=== PATIENT | male | born 1955 | race American Indian/Alaskan Native ===

== ENCOUNTER 2024-05-22 09:39 | Emergency (ER) | payer MEDICARE, MEDICAID, SELFPAY ==
--- NOTE | 2024-05-22 09:58 | EKG_ITS ---
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
--- NOTE | 2024-05-22 09:58 | XR_ITS ---
Examination: PA lateral chest 2 views TECHNIQUE: Upright PA lateral chest 2 views Exam date and time: May 22, 2024 1029 hours INDICATIONS: Chest pain shortness of breath today. FINDINGS: Normal heart size No pneumonia or pulmonary edema Intact osseous structures IMPRESSION: No active disease
--- NOTE | 2024-05-22 09:58 | PD.EDRME ---
Rapid Medical Screening Exam RME Arrival date/time: 05/22/24 09:39 69-year-old male presents the emergency department complaints of chest pain/chest pressure Chief Complaint: Chest Pain Time Seen by Provider: 05/22/24 09:45
[2024-05-22 10:00] VITALS: BP 123/75; PULSE 71; RESP 18; TEMP 36; O2SAT 97; BMI 29.4
[2024-05-22 10:26] LABS: Basophils % (Auto) 1 % (0-2.5); Eosinophils # (Auto) 0.1 Thou/mm3 (0.0-0.5); Eosinophils % (Auto) 2 % (0-10); Hematocrit 46.8 % (41.0-53.0); Immature Granulocytes % (Auto) 1 % (0-0); Immature Granulocytes Auto 0.03 Thou/mm3 (0.00-0.00); Lymphocytes # (Auto) 1.6 Thou/mm3 (1.0-4.8); Lymphocytes % (Auto) 26 % (10-50); Mean Corpuscular HGB Conc 34.2 g/dl (31.0-37.0); Mean Corpuscular Hemoglobin 32.9 pg (25.0-35.0); Mean Corpuscular Volume 96 fL (80-100); Monocytes # (Auto) 0.5 Thou/mm3 (0.0-0.8); Monocytes % (Auto) 9 % (0-12); Neutrophils # (Auto) 3.8 Thou/mm3 (1.8-7.7); Neutrophils % (Auto) 62 % (37-80); Nucleated Red Blood Cell % 0 /100 WBC (0); Platelet Count 213 Thou/mm3 (140-440); RDW Standard Deviation 47.5 fL (35.1-43.9); Red Blood Count 4.86 Miln/mm3 (4.50-5.90); White Blood Count 6.2 Thou/mm3 (3.8-10.6)
[2024-05-22 10:42] LABS: Partial Thromboplastin Time 25.1 Seconds (22.0-36.0); Prothrombin Time 10.9 Seconds (9.0-12.2)
[2024-05-22 10:44] LABS: Alanine Aminotransferase 27 U/L (10-49); Albumin, Serum 4.8 gm/dL (3.4-4.8); Albumin/Globulin Ratio 1.7 (1.2-2.2); Alkaline Phosphatase 82 U/L (46-116); Anion Gap 5 (7-16); Aspartate Amino Transferase 26 U/L (0-34); BUN/Creatinine Ratio 8 Ratio (12-20); Bilirubin,Total 0.5 mg/dL (0.3-1.2); Blood Urea Nitrogen 10 mg/dL (9-23); Carbon Dioxide 28.2 mMol/L (20.0-31.0); Chloride 103 mMol/L (98-107); Creatinine (Component) 1.2 mg/dL (0.6-1.3); Estimated Creatinine Clearance 51.3 mL/min (>60); Globulin 2.9 gm/dL (2.3-3.5); Glucose 148 mg/dL (74-106); Lipase 33 U/L (12-53); Osmolality,Calculated 273 (275-295); Potassium 4.4 mMol/L (3.4-5.1); Sodium 136 mMol/L (136-145); Total Protein 7.7 gm/dL (5.7-8.2); Troponin I < 0.002 ng/mL (0.0-0.045); eGFR > 60 See Note
[2024-05-22 10:51] LABS: B-Type Natriuretic Peptide 34 pg/mL (0-100)
[2024-05-22 10:56] LABS: Amphetamine/Methamp Scrn,U Negative (Negative); Barbiturate Screen,Urine Negative (Negative); Benzodiazepines Screen,Urine Negative (Negative); Benzoylecgonine Screen, Ur Negative (Negative); Fentanyl Screen,Urine Negative (Negative); Opiate Screen,Urine Negative (Negative); THC Screen,Urine Negative (Negative)
--- NOTE | 2024-05-22 11:36 | PC.NURSE ---
PATIENT STATED HE IS GOING TO SEE HIS PCP. PATIENT SIGNSED AMA PAPERWORK AND LEFT ER.
== END 2024-05-22 11:37 | disposition left against medical advice (07) ==
LOC: SERX 11:16
PROVIDERS: Nurse Practitioner Primary Care; Emergency Provider Emergency Medicine
DX: R07.89 Other chest pain (principal); R94.31 Abnormal electrocardiogram [ECG] [EKG]
CPT/HCPCS: 36415; 71046; 80053; 80307; 83690; 83735; 83880; 84484; 85025; 85610; 85730; 93005; 99281

== ENCOUNTER → 2024-07-17 | Outpatient (CLI) | payer MEDICARE, MEDICAID, SELFPAY ==
--- NOTE | 2024-07-17 13:00 | XR_ITS ---
Examination: Retroperitoneal ultrasound, complete Technique: Multiple high resolution grayscale images of the retroperitoneum obtained, including kidneys and bladder. Exam date and time:June 16, 2025 1632 hours INDICATIONS: Diagnosis chronic kidney disease stage III a FINDINGS: Right kidney 9.3 x 5.9 x 4.4 cm in the cortex 1.7 cm Left kidney 10.2 x 4 x 6 x 4.7 cm renal cortex 1.8 cm Moderate bilateral renal parenchymal scar formation Bilateral perinephric stranding measuring 7-8 mm No hydronephrosis No bladder mass or bladder calculi Contracted urinary bladder Prostate volume 25 cc prostate calcifications IMPRESSION: Bilateral renal cortical thinning Moderate bilateral renal parenchymal scar formation No hydronephrosis
== END | disposition home or self-care (01) ==
PROVIDERS: PCP Internal Medicine Nephrology; Referring Provider Internal Medicine Nephrology; Visit Provider Internal Medicine Nephrology
DX: N28.89 Other specified disorders of kidney and ureter (principal)
CPT/HCPCS: 76770

== ENCOUNTER → 2024-09-03 | Outpatient (CLI) | payer MEDICARE, MEDICAID, SELFPAY ==
[2024-09-03 09:31] LABS: Basophils % (Auto) 1 % (0-2.5); Eosinophils # (Auto) 0.1 Thou/mm3 (0.0-0.5); Eosinophils % (Auto) 3 % (0-10); Hematocrit 46.1 % (41.0-53.0); Hemoglobin 15.6 g/dL (13.5-16.0); Immature Granulocytes % (Auto) 0 % (0-0); Immature Granulocytes Auto 0.02 Thou/mm3 (0.00-0.00); Lymphocytes # (Auto) 1.6 Thou/mm3 (1.0-4.8); Lymphocytes % (Auto) 29 % (10-50); Mean Corpuscular HGB Conc 33.8 g/dl (31.0-37.0); Mean Corpuscular Hemoglobin 32.2 pg (25.0-35.0); Mean Corpuscular Volume 95 fL (80-100); Monocytes # (Auto) 0.4 Thou/mm3 (0.0-0.8); Monocytes % (Auto) 8 % (0-12); Neutrophils # (Auto) 3.3 Thou/mm3 (1.8-7.7); Neutrophils % (Auto) 60 % (37-80); Nucleated Red Blood Cell % 0 /100 WBC (0); Platelet Count 201 Thou/mm3 (140-440); RDW Standard Deviation 48.6 fL (35.1-43.9); Red Blood Count 4.84 Miln/mm3 (4.50-5.90); White Blood Count 5.6 Thou/mm3 (3.8-10.6)
[2024-09-03 09:40] LABS: Anion Gap 8 (7-16); BUN/Creatinine Ratio 13 Ratio (12-20); Blood Urea Nitrogen 15 mg/dL (9-23); Calcium 10.1 mg/dL (8.3-10.6); Carbon Dioxide 31.4 mMol/L (20.0-31.0); Chloride 103 mMol/L (98-107); Creatinine (Component) 1.2 mg/dL (0.6-1.3); Glucose 108 mg/dL (74-106); Osmolality,Calculated 284 (275-295); Potassium 4.4 mMol/L (3.4-5.1); Sodium 142 mMol/L (136-145); eGFR > 60 See Note
[2024-09-03 09:41] LABS: Partial Thromboplastin Time 26.8 Seconds (22.0-36.0); Prothrombin Time 11.4 Seconds (9.0-12.2)
== END | disposition home or self-care (01) ==
LOC: COPL 08:09
PROVIDERS: PCP Internal Medicine; Referring Provider Internal Medicine; Visit Provider Internal Medicine
DX: I25.10 Atherosclerotic heart disease of native coronary artery without angina pectoris (principal); I48.91 Unspecified atrial fibrillation
CPT/HCPCS: 36415; 80048; 85025; 85610; 85730

== ENCOUNTER 2024-09-10 04:18 | Emergency (ER) | payer MEDICARE, MEDICAID, SELFPAY ==
[2024-09-10 04:19] VITALS: BMI 27.6
[2024-09-10 04:24] VITALS: BP 143/89; PULSE 93; RESP 18; TEMP 36.8; O2SAT 96
--- NOTE | 2024-09-10 04:43 | XR_ITS ---
Examination: PA lateral chest 2 views Technique: Upright PA lateral chest 2 views Exam date and time: September 10, 2024 0446 hrs. Indications: Onset chest pain today Findings: Normal heart size Lungs are clear. The osseous structures are intact Impression: No active disease
--- NOTE | 2024-09-10 04:44 | PD.EDRME ---
Rapid Medical Screening Exam E Arrival date/time: 09/10/24 04:18 69-year-old male past medical history of hypertension currently on lisinopril presents emergency department complaining of facial swelling that he noticed when he woke up this morning. Chief Complaint: Skin/Abscess/Foreign Body Vital signs: Vital Signs Temperature 98.2 F 09/10/24 04:24 Pulse Rate 93 09/10/24 04:24 Respiratory Rate 18 09/10/24 04:24 Blood Pressure 143/89 H 09/10/24 04:24 Pulse Oximetry (%) 96 09/10/24 04:24 Oxygen Delivery Method Room Air 09/10/24 04:24 Vital signs reviewed by provider: Yes
[2024-09-10] MEDS: lorataDINE 10 MG TABLET PO (05:06)
[2024-09-10] MEDS: DEXAMETHASONE SOD PHOS INJ 10 MG/ML VIAL PO (05:06)
[2024-09-10 05:17] LABS: Basophils % (Auto) 0 % (0-2.5); Eosinophils # (Auto) 0.2 Thou/mm3 (0.0-0.5); Eosinophils % (Auto) 2 % (0-10); Hematocrit 47.3 % (41.0-53.0); Hemoglobin 16.1 g/dL (13.5-16.0); Immature Granulocytes % (Auto) 0 % (0-0); Immature Granulocytes Auto 0.02 Thou/mm3 (0.00-0.00); Lymphocytes # (Auto) 1.7 Thou/mm3 (1.0-4.8); Lymphocytes % (Auto) 26 % (10-50); Mean Corpuscular Hemoglobin 32.5 pg (25.0-35.0); Mean Corpuscular Volume 96 fL (80-100); Monocytes # (Auto) 0.5 Thou/mm3 (0.0-0.8); Monocytes % (Auto) 8 % (0-12); Neutrophils # (Auto) 4.1 Thou/mm3 (1.8-7.7); Neutrophils % (Auto) 63 % (37-80); Nucleated Red Blood Cell % 0 /100 WBC (0); Platelet Count 222 Thou/mm3 (140-440); RDW Standard Deviation 47.5 fL (35.1-43.9); Red Blood Count 4.95 Miln/mm3 (4.50-5.90); White Blood Count 6.6 Thou/mm3 (3.8-10.6)
[2024-09-10] MEDS: FAMOTIDINE 20 MG TABLET 40 MG PO (05:28)
[2024-09-10 05:33] LABS: Partial Thromboplastin Time 27.3 Seconds (22.0-36.0); Prothrombin Time 11.4 Seconds (9.0-12.2)
[2024-09-10 05:35] LABS: B-Type Natriuretic Peptide < 20 pg/mL (0-100)
[2024-09-10 05:37] LABS: Alanine Aminotransferase 23 U/L (10-49); Albumin, Serum 4.8 gm/dL (3.4-4.8); Albumin/Globulin Ratio 1.7 (1.2-2.2); Alkaline Phosphatase 90 U/L (46-116); Anion Gap 8 (7-16); Aspartate Amino Transferase 19 U/L (0-34); BUN/Creatinine Ratio 12 Ratio (12-20); Blood Urea Nitrogen 14 mg/dL (9-23); Calcium 9.8 mg/dL (8.3-10.6); Calcium (Corrected) 9.8 mg/dL (8.5-10.1); Carbon Dioxide 28.6 mMol/L (20.0-31.0); Chloride 103 mMol/L (98-107); Creatinine (Component) 1.2 mg/dL (0.6-1.3); Estimated Creatinine Clearance 53.5 mL/min (>60); Globulin 2.9 gm/dL (2.3-3.5); Glucose 116 mg/dL (74-106); Magnesium 2.1 mg/dL (1.6-2.6); Osmolality,Calculated 280 (275-295); Potassium 4.1 mMol/L (3.4-5.1); Sodium 140 mMol/L (136-145); Total Protein 7.7 gm/dL (5.7-8.2); Troponin I < 0.020 ng/mL (0.0-0.045); eGFR > 60 See Note
--- NOTE | 2024-09-10 05:48 | PC.NURSE ---
Initial contact with pt. Dr. Thomas in room seeing pt.
[2024-09-10 05:59] VITALS: BP 148/87; PULSE 82; RESP 18; TEMP 36.6; O2SAT 97
--- NOTE | 2024-09-10 06:10 | PC.NURSE ---
Pt stated that he woke up at 02:00 to use the BR, he felt itching all over and notice facial swelling. Denies SOB, difficulty swallowing. No rashes or angio edema noted.
[2024-09-10 06:15] LABS: Collection Type, Urine Clean Catch
--- NOTE | 2024-09-10 06:15 | PD.EDSKIN ---
ED Skin Abcess FB-RME/HPI General Chief complaint: Skin/Abscess/Foreign Body Stated complaint: WOKE UP WITH FACIAL SWELLING Time Seen by Provider: 09/10/24 06:25 Arrival date/time: 09/10/24 04:18 RME / HPI RME / HPI narrative: 09/10/24 04:18 69-year-old male past medical history of hypertension currently on lisinopril presents emergency department complaining of facial swelling that he noticed when he woke up this morning. DR. RODRIGUEZ MAIN ED EVALUATION: 69 year old male with history of hypertension, on Lisinopril since 28 years old, presents to the ED for evaluation of facial swelling beginning last night. States he recently underwent peripheral artery procedure with bag press operator Dr. Wahl 1 week ago Tuesday. States he was discharged home on a new antibiotic, which he doesn't recall the name of, and has been taking Q6H. Patient states by that night he noticed full body itching and does not recall if there was a rash. States he continued the antibiotic and the itching persisted through the week. Last night noted additional lip swelling without any pain, itching, tongue swelling, or difficulty breathing. Related Data Home Medications ?Medication ?Instructions ?Recorded ?Confirmed lisinopril 20 mg tablet 10 mg PO DAILY 10/01/20 12/23/21 verapamil 240 mg tablet,extended 240 mg PO BID 11/28/20 12/23/21 release dicyclomine 10 mg capsule 1 cap PO QDAY 12/23/21 12/23/21 doxazosin 2 mg tablet 1 tab PO QDAY 12/23/21 12/23/21 rifampin 300 mg capsule 2 cap PO QDAY 12/23/21 12/23/21 Previous Rx's ?Medication ?Instructions ?Recorded metoclopramide HCl 10 mg tablet 10 mg PO BID #60 tabs 12/23/21 (Reglan) omeprazole 40 mg capsule,delayed 40 mg PO QDAY #30 caps 12/23/21 release diphenoxylate-atropine 2.5 1 tab PO QDAY PRN diarrhea #20 tabs 02/05/22 mg-0.025 mg tablet (Lomotil) Allergies Allergy/AdvReac Type Severity Reaction Status Date / Time No Known Allergies Allergy Verified 05/22/24 09:39 Review of Systems Review of Systems Narrative Review of Systems: Gen: No fever, no chills, no weight loss EYES: No discharge, no visual changes, no pain HEENT: +upper lip swelling. No ear pain, no congestion, no sore throat PULM: no shortness of breath, no cough, no congestion CV: No chest pain, no dyspnea on exertion, no palpitations, no chest tightness GI: No nausea, no vomiting, no diarrhea, no pain, no constipation : No frequency, no urgency,? no dysuria Musc/skel: No joint pain, no back pain Skin: +itching sensation throughout body, no ecchymosis, no lesions Neuro: No weakness, no headache Past Medical History Past Medical History CARDIAC: Positive Heart Murmur and Hypertension GASTROINTESTINAL: Positive Gastrointestinal Disorders, Hepatitis (HEP C), Gall Bladder Disease and Gastroesophageal Reflux Disease GENITOURINARY: Positive Genitourinary Disorders and Benign Prostatic Hyperplasia MUSCULOSKELETAL: Positive Arthritis PSYCHO/SOCIAL: Positive Recreational Drug Use OTHER HISTORY: Positive Chicken Pox and Hepatitis C Family History FAMILY HISTORY: Positive Family Cardiac Disorders Surgical History SURGICAL: Positive Abdominal Surgery Social History SMOKING STATUS: Never smoker SECOND HAND EXPOSURE: Yes SUBSTANCE USE: does not use ED Exam Narrative Physical exam: Physical exam was performed after patient received Loratadine, Decadron, and Famotidine. GENERAL APPEARANCE: AxOx4, no obvious distress, nontoxic appearing HEENT: NC, AT. There is mild angioedema of the upper lip, no drooling, no tongue swelling. MMM. EOMI, clear conjunctiva, oropharynx clear. NECK: Supple without lymphadenopathy. No stiffness or restricted ROM. HEART: Normal rate and regular rhythm, normal S1/S1, no m/r/g LUNGS: CTAB, moving air well. No crackles or wheezes are heard. ABDOMEN: Soft, nontender, nondistended with good bowel sounds heard. BACK: No midline C/T/L spine pain or deformity, No CVAT, no obvious deformity. EXTREMITIES: Without cyanosis, clubbing or edema. MUSCULOSKELETAL: FROM of all major joints, no chest tenderness NEUROLOGICAL: Grossly nonfocal. Alert and oriented, moving all 4 extremities. CN not formally tested but appear grossly intact. Skin: Warm and dry. Patient states the itching sensation has completely resolved after medications, no rash noted. Course Quality Measures none Orders Category Date Time Status XR chest 2V Stat Exams 09/10/24 04:43 Completed BNP [B-Type Natriuretic Peptide] Stat Lab 09/10/24 04:55 Completed CBC Stat Lab 09/10/24 04:55 Completed Comprehensive Metabolic Panel Stat Lab 09/10/24 04:55 Completed Drug Screen,Urine Stat Lab 09/10/24 06:05 Completed Mag [Magnesium] Stat Lab 09/10/24 04:55 Completed PT [Prothrombin Time with INR] Stat Lab 09/10/24 04:55 Completed PTT [Partial Thromboplastin Time] Stat Lab 09/10/24 04:55 Completed Troponin I Stat Lab 09/10/24 04:55 Completed Urinalysis, C/S if Indicated Stat Lab 09/10/24 06:05 Completed Dexamethasone Inj [Decadron Inj] Med 09/10/24 04:50 Discontinued 10 mg PO X1 ONE Famotidine [Pepcid] Med 09/10/24 05:04 Discontinued 40 mg PO X1 ONE lorataDINE [Claritin] Med 09/10/24 04:50 Discontinued 10 mg PO X1 ONE Reevaluation(s) Reevaluation #1: We reviewed all the results, analysis, and treatment plans to observe until 08:30 am today. Time: 07:00 Reevaluation #2: Notified by the patients nurse that he walked out. Time: 07:46 Vital Signs Vital signs: Vital Signs Temperature 98.2 F 09/10/24 04:24 Pulse Rate 93 09/10/24 04:24 Respiratory Rate 18 09/10/24 04:24 Blood Pressure 143/89 H 09/10/24 04:24 Pulse Oximetry (%) 96 09/10/24 04:24 Oxygen Delivery Method Room Air 09/10/24 04:24 Pulse ox is 96% on room air which is adequate. Skin / Abscess / Foreign Body MDM Narrative MDM Narrative:: Sandy Maloney am scribing for and in the presence of Dr. Rodriguez. Patient data External records reviewed:: [facility] previous records (I reviewed ED visit on 04/17/2024) Clinical information provided by:: patient and family Social determinants that could affect healthcare access:: none Patient has the following chronic illnesses:: Hypertension, ACS, BPH, SBO How is presenting disease/condition affected by chronic disease/condition?: uneffected by Evaluation data The following diagnostics were reviewed and interpreted by me:: lab results and radiology exam(s) Lab and/or radiology exams considered but not ordered:: None Interpretation Summary: As noted above Medications / Prescriptions Medications or Prescriptions considered but not ordered:: None Medication administrations:: Medication Administration History Discontinued Medications Dexamethasone Sodium Phosphate (Dexamethasone Sod Phos Inj 10 Mg/Ml Vial) 10 mg PO X1 ONE Stop: 09/10/24 04:51 Last Admin: 09/10/24 05:06 Dose: 10 mg Documented By: EF Famotidine (Famotidine 20 Mg Tablet) 40 mg PO X1 ONE Stop: 09/10/24 05:05 Last Admin: 09/10/24 05:28 Dose: 40 mg Documented By: TC Loratadine (Loratadine 10 Mg Tablet) 10 mg PO X1 ONE Stop: 09/10/24 04:51 Last Admin: 09/10/24 05:06 Dose: 10 mg Documented By: EF See above Consultations Consultation(s) initiated? (list below): No Diagnosis Skin/Abscess Differential Diagnosis: urticaria, allergic reaction to drug, cellulitis and other (angioedema ) Most likely diagnosis given after review of the tests above:: Allergic reaction Admission Indicated Admission indicated?: not indicated Admission Request Was there a request for admission?: No Disposition Plan Disposition Plan: other (specify) (Left against medical advise ) Discharge Plan Plan Patient Disposition: Left Against Medical Advice Prescriptions/Referrals Prescriptions/Med Rec: No Action verapamil 240 mg Tablet Extended Release 240 mg PO BID lisinopril 20 mg tablet 10 mg PO DAILY rifampin 300 mg capsule 2 cap PO QDAY Patient Comments: take 2 capsules by mouth once daily dicyclomine 10 mg capsule 1 cap PO QDAY Patient Comments: take 1 capsule by mouth twice a day doxazosin 2 mg tablet 1 tab PO QDAY omeprazole 40 mg Capsule,Delayed Release(Dr/Ec) 40 mg PO QDAY Qty: 30 2RF Rx Instructions: take one capsule by mouth daily metoclopramide HCl [Reglan] 10 mg Tablet 10 mg PO BID Qty: 60 2RF Rx Instructions: take one tablet by mouth two times daily diphenoxylate-atropine [Lomotil] 2.5-0.025 mg tablet 1 tab PO QDAY PRN (Reason: diarrhea) Qty: 20 0RF Referrals: Jr Ya MD ([facility]) [Primary Care Provider] - In 1 week Problem List Clinical Impression: Allergic reaction Patient/Caregiver Discharge Instructions Education Materials: ED Medicine Reaction: Allergic Additional Instructions: Stop using the new antibiotic you are prescribed. Please share the name of this antibiotic with your primary care doctor for update of your allergy list. You can take [id number] diphenhydramine (Benadryl) 25 to 50 mg 3 times a day as needed for itching. Feel free return to the emergency department sooner symptoms worsen or if you notice any new, concerning issues. Print Language: Kyrgyz Stand Alone Forms: Nancy Award Info., Patient Portal Info Letter
--- NOTE | 2024-09-10 06:17 | PC.NURSE ---
Addendum entered by Venkat Sharp RN 09/10/24 06:21: Pt unable to recall what antibiotic he is taking. Original Note: Pt stated that the only new thing was antibiotic that was prescribed to him and has been taking it Q6H since Tuesday.
[2024-09-10 06:20] LABS: Bilirubin,Urine Negative (Negative); Blood,Urine Negative (Negative); Clarity,Urine Clear (Clear/Hazy); Color,Urine Lt-Yellow (Lt Yel-Yel); Culture Indicated,Urine Not Indicated; Glucose, Urine Negative (Negative); Ketones,Urine Negative (Negative); Leukocyte Esterase,Urine Negative (Negative); Nitrite,Urine Negative (Negative); Protein,Urine Trace (Neg - Trace); RBC,Urine 1 /hpf (0-3); Specific Gravity,Urine 1.019 (1.001-1.035); Squamous Epithelial Cell,Urine < 1 /hpf (0-5); Urobilinogen,Urine Negative mg/dL (0.0-1.0); WBC,Urine 1 /hpf (0-5)
[2024-09-10 06:31] LABS: Amphetamine/Methamp Scrn,U Negative (Negative); Barbiturate Screen,Urine Negative (Negative); Benzodiazepines Screen,Urine Positive (Negative); Benzoylecgonine Screen, Ur Negative (Negative); Fentanyl Screen,Urine Positive (Negative); Opiate Screen,Urine Negative (Negative); THC Screen,Urine Negative (Negative)
--- NOTE | 2024-09-10 06:31 | PC.NURSE ---
Dr. Grover in room seeing pt.
--- NOTE | 2024-09-10 06:47 | PC.NURSE ---
Pt stated that he's feeling much better, Facial and lips swelling are down, and cont to denies any difficulty with breathing.
--- NOTE | 2024-09-10 07:29 | PC.NURSE ---
PT AAOX4 COOPERATIVE, STATES THAT THE SWELLING HAS WENT DOWN AND FEELS MUCH BETTER BUT THAT HE NEEDS TO BE OUT OF HERE BY 0800 ADVISED THAT I WILL ASK PROVIDER. AND ADVISED THAT WE CANT KEEP HIM HERE EITHER IF HE WANTS TO LEAVE. HE STATES OK. HE SAYS THAT WHAT WE GAVE HIM IS WORKING. AND IS READY TO GO.
--- NOTE | 2024-09-10 07:47 | PC.NURSE ---
PT WANTING TO LEAVE SAYS HE FEEL BETTER ADVISED THAT HE IS LEAVING PRIOR TO END OF OBSERVATION PERIOD HE STATES HE WILL NOT TAKE ABX AND WILL F/U WITH PROVIDER ADVISED TO RETURN IF SYMPTOMS RETURN PT SIGNED AMA PAPER
== END 2024-09-10 07:46 | disposition left against medical advice (07) ==
PROVIDERS: Emergency Provider Emergency Medicine; PCP Student in an Organized Health Care Education/Training Program
DX: T78.40XA Allergy, unspecified, initial encounter (principal); I10 Essential (primary) hypertension; X58.XXXA Exposure to other specified factors, initial encounter; Z79.899 Other long term (current) drug therapy; Z53.29 Procedure and treatment not carried out because of patient's decision for other reasons
CPT/HCPCS: 36415; 71046; 80053; 80307; 81001; 83735; 83880; 84484; 85025; 85610; 85730; 99283; J1100; A9270

== ENCOUNTER 2025-04-10 10:30 | Day surgery (SDC) | payer MEDICARE, MEDICAID, SELFPAY ==
--- NOTE | 2025-04-09 06:00 | EKG_ITS ---
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
[2025-04-09 08:06] LABS: Alanine Aminotransferase 26 U/L (10-49); Albumin, Serum 4.3 gm/dL (3.4-4.8); Albumin/Globulin Ratio 1.9 (1.2-2.2); Alkaline Phosphatase 77 U/L (46-116); Anion Gap 9 (7-16); Aspartate Amino Transferase 24 U/L (0-34); BUN/Creatinine Ratio 9 Ratio (12-20); Bilirubin,Total 0.5 mg/dL (0.3-1.2); Blood Urea Nitrogen 10 mg/dL (9-23); Calcium 9.6 mg/dL (8.3-10.6); Calcium (Corrected) 9.6 mg/dL (8.5-10.1); Carbon Dioxide 28.8 mMol/L (20.0-31.0); Chloride 108 mMol/L (98-107); Creatinine (Component) 1.1 mg/dL (0.6-1.3); Globulin 2.3 gm/dL (2.3-3.5); Glucose 112 mg/dL (74-106); Osmolality,Calculated 290 (275-295); Potassium 4.8 mMol/L (3.4-5.1); Sodium 146 mMol/L (136-145); Total Protein 6.6 gm/dL (5.7-8.2); eGFR > 60 See Note
[2025-04-09 12:57] VITALS: BMI 29.2
[2025-04-10] VITALS (9 sets, daily range): BP systolic 110–180; BP diastolic 64–94; PULSE 69–85; RESP 12–25; TEMP 36.2–37.4; O2SAT 93–100; BMI 28.7
[2025-04-10] MEDS: RINGERS LACTATED 500 ML 500 ML 20 ML IV (11:18)
[2025-04-10] MEDS: BENZOCAINE 20% (Hurricaine) SPRAY 1 DOSE TOP (13:50)
[2025-04-10] MEDS: SIMETHICONE 40 MG/0.6 ML ORAL SYRINGE PO (14:17)
--- NOTE | 2025-04-10 15:42 | SUR.PHASEII ---
pt awake and alert, breathing unlabored on room air. v/s stable. pt able to ambulate to wheelchair with steady gait. d/c instructions given with s/o Gina in room, all questions answered. pt d/c via wheelchair with all belongings.
== END 2025-04-10 15:42 | disposition home or self-care (01) ==
PROVIDERS: Anesthesiology; PCP Nurse Practitioner Family; Referring Provider Internal Medicine Gastroenterology; Visit Provider Internal Medicine Gastroenterology
PROC: 0DJD8ZZ Inspection of Lower Intestinal Tract, Via Natural or Artificial Opening Endoscopic (ICD-10-PCS; CPT 45378; principal; 2025-04-10 12:00)
PROC: (CPT 43239; 2025-04-10 12:00)
DX: D12.0 Benign neoplasm of cecum (principal); D12.2 Benign neoplasm of ascending colon; K52.9 Noninfective gastroenteritis and colitis, unspecified; K64.1 Second degree hemorrhoids; B17.10 Acute hepatitis C without hepatic coma; K57.31 Diverticulosis of large intestine without perforation or abscess with bleeding; K22.89 Other specified disease of esophagus; K44.9 Diaphragmatic hernia without obstruction or gangrene; K29.51 Unspecified chronic gastritis with bleeding; Z01.810 Encounter for preprocedural cardiovascular examination
CPT/HCPCS: 45380; 43239; 36415; 80053; 93005; A4649; J2470; J7120; A9270